=== PATIENT | male | born 1995 | race Caucasian/White ===

== ENCOUNTER 2024-10-10 13:25 | Outpatient (REF) | payer OTHER, SELFPAY ==
[2024-10-10 13:54] LABS: Amphetamine Screen Urine Not Detected (Not Detect); Barbiturates, Urine Not Detected (Not Detect); Benzodiazepines Screen Urine Not Detected (Not Detect); Buprenorphine Scr Not Detected (Not Detect); Cannabinoid Screen Urine POSITIVE (Not Detect); Cocaine Screen Urine Not Detected (Not Detect); Fentanyl, urine Not Detected (Not Detect); Methadone Screen, Urine Not Detected (Not Detect); Opiate Screen Urine Not Detected (Not Detect); Oxycodone Screen Urine Not Detected (Not Detect); Phencyclidine Screen Urine Not Detected (Not Detect)
== END 2024-10-10 13:26 | disposition home or self-care (01) ==
LOC: HO.LNP 13:25
PROVIDERS: Visit Provider Psychiatry & Neurology Psychiatry
DX: F12.90 Cannabis use, unspecified, uncomplicated (principal); F31.9 Bipolar disorder, unspecified; F90.9 Attention-deficit hyperactivity disorder, unspecified type
CPT/HCPCS: 80307

== ENCOUNTER 2024-10-22 09:15 | Outpatient (RCR) | payer OTHER, SELFPAY ==
[2024-10-09 09:53] VITALS: BP 124/78; PULSE 68; TEMP 36.6; BMI 27.2
--- NOTE | 2024-10-09 14:02 | PC.ADMIT ---
Patient is a 29 year old male who has a dx of bipolar disorder, Cannabis use, ADHD, and PTSD. 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 Patient reports no day structure and spends most of his day in bed or on the couch. He also reports he is vaping marijuana throughout the day. He is help seeking and feels stuck in his life. He wants to learn health coping skills and not react to conflict in his family. His terminal supervisor goal is to go to school in November 2024 for nursing and start with taking pre-requisite classes. Patient is currently unemployed and reports being on SSDI. He stated he has a work history as a dishwasher busser, tutoring, and landscaping. Patient is alert and oriented x4. He is calm and cooperative. He presented with depressed mood and anxious affect. Regarding SI He reports having passive SI. Reports he has thoughts sometimes stating, That I don't want to live anymore. I don't want to because it is scary . He denied any plans or intention of killing himself. He was given a copy of his safety plan if needed. Medications reconciled with patient and patient's pharmacy. Patient stated he is taking his medications as prescribed.
--- NOTE | 2024-10-10 15:51 | HO.PHP ---
Client's case has been opened and reviewed in team.
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
--- NOTE | 2024-10-18 14:27 | HO.PHP ---
[facility] staff member was informed by group members that Chiki wanted to the group members to relay to staff that he had to leave due to needing to vegetable picker his girlfriend. [facility] staff member attempted to reach out to Chiki with no success. [facility] staff member will follow up with Chiki Monday to inform him that he needs to inform staff not group members moving forward.
--- NOTE | 2024-10-21 10:16 | HO.PHP ---
PHP Admin, Grace, informed the team that Chiki will not be in attendance to program because his town received snow. Chiki reported no safety concerns and will be in attendance to program tomorrow.
--- NOTE | 2024-10-22 11:57 | P.PNPSP_ITS ---
Subjective Subjective Date of Service: 10/22/24 Reason For Visit: bipolar,PTSD,ADHD,anxiety,depression Diagnostics Vital Signs (24Hr): BMI result Body Mass Index 27.2 Assessment & Plan Certification I certify that partial hospital treatment is medically necessary due to the symptoms and problems resulting from the patient's mental illness and the failure to treat the patient at the partial hospital level of care would likely result in the patient requiring inpatient psychiatric care which could not be prevented at a less intensive level of care. Total time managing care of this patient today ____ minutes. Discharge Plan Discharge Attending provider: Rosetta Harris Medications: Continued dextroamphetamine-amphetamine 10 mg capsule,extended release 24hr 10 mg PO QAM Patient Comments: Patient stated he uses when he is studying. Has not used in a while. Rx Instructions: Last filled 08/2024. Patient stated he uses PRN. aripiprazole 5 mg Tablet 5 mg PO BEDTIME Patient Comments: Patient stated he takes at bedtime. Rx Instructions: Last filled 07/14/24 #90 lisinopril 20 mg Tablet 20 mg PO DAILY bupropion HCl 150 mg Tablet Extended Release 24 Hr 150 mg PO QAM Rx Instructions: Last filled February 2024. Patient Education: ADHD in Adults ([place]), Bipolar Disorder ([place]) Print Language: Haitian
== END 2024-10-22 23:59 | disposition home or self-care (01) ==
LOC: HO.PHPA 09:15
PROVIDERS: Visit Provider Psychiatry & Neurology Psychiatry
DX: F31.9 Bipolar disorder, unspecified (principal); F90.9 Attention-deficit hyperactivity disorder, unspecified type; F43.10 Post-traumatic stress disorder, unspecified; F12.10 Cannabis abuse, uncomplicated; Z79.899 Other long term (current) drug therapy
CPT/HCPCS: 90791; 90853